=== PATIENT | female | born 1950 | race Native Hawaiian/Other Pacific Islander ===

== ENCOUNTER 2017-10-13 11:04 | Outpatient (CLI) | payer OTHER ==
[~2017-10-13 11:04] MED LIST: DIGOXIN0.25 MG PO; WARFARIN5 MG PO
== END 2017-10-13 21:48 | disposition home or self-care (01) ==
LOC: LABW 11:04
DX: Z79.01 Long term (current) use of anticoagulants (principal); Z51.81 Encounter for therapeutic drug level monitoring
CPT/HCPCS: 36415; 85610

== ENCOUNTER 2017-10-17 09:42 | Outpatient (CLI) | payer OTHER | END 2017-10-17 19:04 | disposition home or self-care (01) | LOC: LABW 09:42 | DX: Z79.01 Long term (current) use of anticoagulants (principal); Z51.81 Encounter for therapeutic drug level monitoring | CPT/HCPCS: 36415; 85610 ==

== ENCOUNTER 2017-10-22 10:13 | Outpatient (CLI) | payer OTHER | END 2017-10-22 22:25 | disposition home or self-care (01) | LOC: LABW 10:13 | DX: Z79.01 Long term (current) use of anticoagulants (principal); Z51.81 Encounter for therapeutic drug level monitoring | CPT/HCPCS: 36415; 85610 ==

== ENCOUNTER 2017-10-28 09:20 | Outpatient (CLI) | payer OTHER | END 2017-10-28 21:56 | disposition home or self-care (01) | LOC: LABW 09:20 | DX: Z79.01 Long term (current) use of anticoagulants (principal); Z51.81 Encounter for therapeutic drug level monitoring | CPT/HCPCS: 36415; 85610 ==

== ENCOUNTER 2017-11-13 08:37 | Outpatient (CLI) | payer OTHER | END 2017-11-13 19:26 | disposition home or self-care (01) | LOC: LABW 08:37 | DX: Z79.01 Long term (current) use of anticoagulants (principal); Z51.81 Encounter for therapeutic drug level monitoring | CPT/HCPCS: 36415; 85610 ==

== ENCOUNTER 2017-12-17 07:49 | Outpatient (CLI) | payer OTHER | END 2017-12-17 23:15 | disposition home or self-care (01) | LOC: LABW 07:49 | DX: Z79.01 Long term (current) use of anticoagulants (principal); Z51.81 Encounter for therapeutic drug level monitoring | CPT/HCPCS: 36415; 85610 ==

== ENCOUNTER 2018-01-08 07:13 | Outpatient (CLI) | payer OTHER | END 2018-01-08 20:37 | disposition home or self-care (01) | LOC: LABW 07:13 | DX: Z09 Encounter for follow-up examination after completed treatment for conditions other than malignant neoplasm (principal); Z79.01 Long term (current) use of anticoagulants | CPT/HCPCS: 36415; 85610 ==

== ENCOUNTER 2018-01-12 07:34 | Outpatient (CLI) | payer OTHER | END 2018-01-12 22:08 | disposition home or self-care (01) | LOC: LABW 07:34 | DX: Z79.01 Long term (current) use of anticoagulants (principal); Z09 Encounter for follow-up examination after completed treatment for conditions other than malignant neoplasm | CPT/HCPCS: 36415; 85610 ==

== ENCOUNTER 2018-01-19 09:00 | Outpatient (CLI) | payer OTHER | END 2018-01-19 19:42 | disposition home or self-care (01) | LOC: LABW 09:00 | DX: Z79.01 Long term (current) use of anticoagulants (principal); Z51.81 Encounter for therapeutic drug level monitoring | CPT/HCPCS: 36415; 85610 ==

== ENCOUNTER 2018-02-02 11:50 | Outpatient (CLI) | payer OTHER | END 2018-02-02 23:05 | disposition home or self-care (01) | LOC: LABW 11:50 | DX: Z79.01 Long term (current) use of anticoagulants (principal); Z51.81 Encounter for therapeutic drug level monitoring | CPT/HCPCS: 36415; 85610 ==

== ENCOUNTER 2018-02-26 07:33 | Outpatient (CLI) | payer OTHER ==
[2018-02-26 08:05] LABS: PLATELET COUNT 208 K/uL (152-353)
== END 2018-02-26 23:08 | disposition home or self-care (01) ==
LOC: LABW 07:33
PROVIDERS: Internal Medicine
DX: E78.5 Hyperlipidemia, unspecified (principal); I10 Essential (primary) hypertension; Z79.899 Other long term (current) drug therapy; Z79.01 Long term (current) use of anticoagulants; Z09 Encounter for follow-up examination after completed treatment for conditions other than malignant neoplasm
CPT/HCPCS: 36415; 80053; 80061; 81000; 84439; 84443; 85027; 85610; 87086; 87088

== ENCOUNTER 2018-03-17 07:15 | Outpatient (CLI) | payer OTHER | END 2018-03-17 23:43 | disposition home or self-care (01) | LOC: LABW 07:15 | DX: Z79.01 Long term (current) use of anticoagulants (principal); Z09 Encounter for follow-up examination after completed treatment for conditions other than malignant neoplasm | CPT/HCPCS: 36415; 85610 ==

== ENCOUNTER 2018-04-06 07:16 | Outpatient (CLI) | payer OTHER | END 2018-04-06 19:40 | disposition home or self-care (01) | LOC: LABW 07:16 | DX: Z79.01 Long term (current) use of anticoagulants (principal); Z09 Encounter for follow-up examination after completed treatment for conditions other than malignant neoplasm | CPT/HCPCS: 36415; 85610 ==

== ENCOUNTER 2018-08-25 07:30 | Outpatient (CLI) | payer OTHER ==
[2018-08-25 07:52] LABS: PLATELET COUNT 469 K/uL (152-353)
[2018-08-25 08:40] LABS: POTASSIUM 4.4 mmol/L (3.6-5.2)
== END 2018-08-25 19:37 | disposition home or self-care (01) ==
LOC: LABW 07:30
PROVIDERS: Internal Medicine
DX: I10 Essential (primary) hypertension (principal); Z79.899 Other long term (current) drug therapy
CPT/HCPCS: 36415; 80053; 80162; 85027

== ENCOUNTER 2018-12-03 08:32 | Outpatient (CLI) | payer OTHER | END 2018-12-03 19:10 | disposition home or self-care (01) | LOC: LABW 08:32 | PROVIDERS: Internal Medicine Cardiovascular Disease | DX: E78.49 Other hyperlipidemia (principal); Z09 Encounter for follow-up examination after completed treatment for conditions other than malignant neoplasm | CPT/HCPCS: 36415; 80061; 80076 ==

== ENCOUNTER 2018-12-31 10:00 | Outpatient (CLI) | payer OTHER ==
[2018-12-31 10:50] LABS: PLATELET COUNT 231 K/uL (152-353)
== END 2018-12-31 19:42 | disposition home or self-care (01) ==
LOC: LAB 10:00
PROVIDERS: Internal Medicine
DX: D64.89 Other specified anemias (principal)
CPT/HCPCS: 36415; 85027

== ENCOUNTER 2019-04-15 08:19 | Outpatient (CLI) | payer OTHER ==
[2019-04-15 08:45] LABS: PLATELET COUNT 150 K/uL (152-353)
[2019-04-15 09:14] LABS: POTASSIUM 4.6 mmol/L (3.6-5.2)
== END 2019-04-15 19:44 | disposition home or self-care (01) ==
LOC: LABW 08:19
PROVIDERS: Internal Medicine
DX: Z00.00 Encounter for general adult medical examination without abnormal findings (principal); I10 Essential (primary) hypertension; Z79.899 Other long term (current) drug therapy; N95.8 Other specified menopausal and perimenopausal disorders; Z13.820 Encounter for screening for osteoporosis
CPT/HCPCS: 36415; 80053; 80061; 81000; 84443; 85027

== ENCOUNTER 2019-11-23 07:39 | Outpatient (CLI) | payer OTHER | END 2019-11-23 19:03 | disposition home or self-care (01) | LOC: LABW 07:39 | PROVIDERS: Internal Medicine Cardiovascular Disease | DX: E78.49 Other hyperlipidemia (principal) | CPT/HCPCS: 36415; 80061; 80076 ==

== ENCOUNTER 2020-04-18 09:23 | Outpatient (CLI) | payer OTHER ==
[2020-04-18 10:02] LABS: PLATELET COUNT 166 K/uL (152-353)
== END 2020-04-18 19:29 | disposition home or self-care (01) ==
LOC: LABW 09:23
PROVIDERS: Internal Medicine
DX: Z00.00 Encounter for general adult medical examination without abnormal findings (principal); I10 Essential (primary) hypertension; E78.00 Pure hypercholesterolemia, unspecified; Z13.820 Encounter for screening for osteoporosis; E55.9 Vitamin D deficiency, unspecified
CPT/HCPCS: 36415; 80053; 80061; 81000; 82306; 84439; 84443; 85027

== ENCOUNTER 2021-11-20 08:55 | Outpatient (CLI) | payer OTHER | END 2021-11-20 18:58 | disposition home or self-care (01) | LOC: LABW 08:55 | PROVIDERS: ATTEND Internal Medicine Cardiovascular Disease | DX: E78.49 Other hyperlipidemia (principal) | CPT/HCPCS: 36415; 80061; 80076 ==

== ENCOUNTER 2022-04-24 12:33 | Outpatient (CLI) | payer OTHER | END 2022-04-24 19:12 | disposition home or self-care (01) | LOC: LAB 12:33 | PROVIDERS: ATTEND Internal Medicine | DX: N39.0 Urinary tract infection, site not specified (principal) | CPT/HCPCS: 87088 ==